=== PATIENT | male | born 1990 | race American Indian/Alaskan Native ===

== ENCOUNTER 2020-10-20 21:24 | Emergency (ER) | payer OTHER ==
--- NOTE | 2020-10-20 21:47 | Event Note ---
ED Screening Note Date of service: 10/20/20 Time: 21:45 ED Screening Note: c/o headache and left eye blurry vision x 3 days tylenol not helping denies hx of migraines, HTN, or head trauma no numbness/tingling/weakness in limbs per pt normal rhomberg, rapid hand movements, and heel to chance on exam This initial assessment/diagnostic orders/clinical plan/treatment(s) is/are subject to change based on patients health status, clinical progression and re- assessment by fellow clinical providers in the ED. Further treatment and workup at subsequent clinical providers discretion. Patient/guardian urged not to elope from the ED as their condition may be serious if not clinically assessed and ma naged. Initial orders include: labs CT head
[2020-10-20 22:05] LABS: Basophils # (Auto) 0.1 K/mm3 (0.0-0.1); Basophils % (Auto) 0.9 % (0.0-1.8); Eosinophils # (Auto) 0.1 K/mm3 (0.0-0.4); Eosinophils % (Auto) 1.7 % (0.0-4.3); Hematocrit 43.1 % (35.5-45.6); Hemoglobin 14.9 gm/dl (11.8-15.2); Lymphocytes # (Auto) 2.7 K/mm3 (1.2-5.4); Lymphocytes % (Auto) 43.1 % (13.4-35.0); Mean Corpuscular HGB Conc 34 % (32-34); Mean Corpuscular Volume 91 fl (84-94); Monocytes # (Auto) 0.5 K/mm3 (0.0-0.8); Monocytes % (Auto) 8.3 % (0.0-7.3); Platelet Count 188 K/mm3 (140-440); Red Blood Count 4.74 M/mm3 (3.65-5.03)
[2020-10-20 22:25] LABS: Alanine Aminotransferase 20 units/L (7-56); Albumin 4.7 g/dL (3.9-5); BUN/Creatinine Ratio 16; Blood Urea Nitrogen 18 mg/dL (9-20); Calcium 9.8 mg/dL (8.4-10.2); Hemolysis Index 9
--- NOTE | 2020-10-20 22:44 | Cat Scan Report ---
NONENHANCED CT SCAN OF THE HEAD: INDICATION / CLINICAL INFORMATION: 30 years Male; headache, left eye blurry vision x 3 days. TECHNIQUE: Routine CT head without contrast. All CT scans at this location are performed using CT dos e reduction for ALARA by means of automated exposure control. COMPARISON: None. FINDINGS: Abnormal CT scan BRAIN / INTRACRANIAL CONTENTS: Sellar turcica is expanded by a large sellar mass with suprasellar ext ension; remodeled floor of the sella has thickened bony wall; enlarged pituitary adenoma versus large aneurysm; please obtain MR scan of the pituitary gland with gadolinium; enlarged paranasal sinuses, expanded diploic space, frontal bossing and large mandible suggest acromegaly. No acute hemorrhage, mass effect, midline shift, hydrocephalus, or acute, large territorial infarct. No chronic infarct or focal atrophy. Normal brain volume and ventricular/sulcal size for age. No sign ificant white matter abnormality. CRANIOCERVICAL JUNCTION: No significant abnormality. ORBITS: No significant abnormality of visualized orbits. SINUSES / MASTOIDS: No significant abnormality of the visualized paranasal sinuses or mastoid air sudha ls. ADDITIONAL FINDINGS: None. IMPRESSION: Expanded sella turcica with the larger mass; large pituitary tumor versus aneurysm Enlarged paranasal sinuses, expanded diploic space and large jaw suggest acromegaly Please obtain MR scan of the pituitary gadolinium CRITICAL RESULT: Time of Discovery (ROOF TRUSS BUILDER/CDT): 9:30 PM Time of Communication (ROOF TRUSS BUILDER/CDT): 9:38 PM Licensed Practitioner Receiving Report: ER physician Read-Back Performed: Yes. Signer Name: Angel Dunlap MD Signed: 10/20/2020 10:39 PM Workstation Name: [id number]
--- NOTE | 2020-10-21 06:20 | Emergency Department Report ---
ED General Adult HPI - General Chief complaint: High BP Stated complaint: HIGH BLOOD PRESSURE Time Seen by Provider: 10/20/20 21:43 Source: patient Mode of arrival: Ambulatory Limitations: No Limitations - History of Present Illness Initial comments: Patient is a 30-year-old male who presents emergency department for evaluation of intermittent dull global headaches associated with double vision from left eye x 3 days. Denies N/V/D, denies trauma, denies extremity weakness or sensory change. Severity scale (0 -10): 0 - Related Data Allergies Allergy/AdvReac Type Severity Reaction Status Date / Time No Known Allergies Allergy Unverified 10/20/20 21:38 ED Review of Systems ROS: Stated complaint: HIGH BLOOD PRESSURE Other details as noted in HPI Comment: All other systems reviewed and negative ED Past Medical Hx - Past Medical History Previous Medical History?: No - Surgical History Past Surgical History?: No - Social History Smoking Status: Never Smoker Substance Use Type: Alcohol ED Physical Exam - General Limitations: No Limitations, Other ((+) acromegaly) General appearance: alert, in no apparent distress - Head Head exam: Present: atraumatic, normocephalic - Eye Eye exam: Present: normal appearance, EOMI Pupils: Present: normal accommodation - ENT ENT exam: Present: mucous membranes moist - Neck Neck exam: Present: normal inspection - Respiratory Respiratory exam: Present: normal lung sounds bilaterally. Absent: respiratory distress - Cardiovascular Cardiovascular Exam: Present: regular rate, normal rhythm - GI/Abdominal GI/Abdominal exam: Present: soft, normal bowel sounds - Rectal Rectal exam: Present: deferred - Extremities Exam Extremities exam: Present: normal inspection - Back Exam Back exam: Present: normal inspection - Neurological Exam Neurological exam: Present: alert, oriented X3, normal gait - Expanded Neurological Exam Expanded Neurological exam: Present: other (diplopia without obvious field cut) Patient oriented to: Present: person, place, time Speech: Present: fluid speech Cranial nerves: EOM's Intact: Normal, Tongue Deviation: Normal, Nystagmus: Normal, Facial Sensation: Normal Cerebellar function: Finger to Nose: Normal Sensory exam: Upper Extremity Light Touch: Normal, Lower Extremity Light Touch: Normal Motor strength exam: RUE: 5, LUE: 5, RLE: 5, LLE: 5 Best Eye Response ([place]): (4) open spontaneously Best Motor Response ([place]): (6) obeys commands Best Verbal Response ([place]): (5) oriented [place] Total: 15 - Psychiatric Psychiatric exam: Present: normal affect, normal mood - Skin Skin exam: Present: warm, dry, intact, normal color. Absent: rash ED Course Vital Signs 10/20/20 10/21/20 10/21/20 21:39 05:12 07:00 Temperature 98.5 F Pulse Rate 78 66 Respiratory 20 16 Rate Blood Pressure 146/103 134/83 Blood Pressure 143/103 [Right] O2 Sat by Pulse 98 99 Oximetry - Reevaluation(s) Reevaluation #1: 10/21/20 06:20 on initial evaluation, patient has been waiting in the emergency department for over 8 hours, patient now has blood pressure 141/90, denies headache, complains of mild blurry vision from left eye. CTA head pending. Radiologist requests additional noncontrast CT head after CTA, ordered. 10/21/20 13:23 Dr. Cardenas, neurosurgery on-call, contacted, case discussed, recommends transfer to another facility. Dr. Saxena, [place] [facility] contacted, case discussed, accepts patient for transfer. 10/21/20 13:25 ED Medical Decision Making - Lab Data Result diagrams: 10/20/20 21:46 10/20/20 21:46 Labs 10/20/20 10/20/20 21:46 21:46 WBC 6.2 RBC 4.74 Hgb 14.9 Hct 43.1 MCV 91 MCH 31 MCHC 34 RDW 12.0 L Plt Count 188 Lymph % (Auto) 43.1 H [place] % (Auto) 8.3 H Eos % (Auto) 1.7 Baso % (Auto) 0.9 Lymph # (Auto) 2.7 [place] # (Auto) 0.5 Eos # (Auto) 0.1 Baso # (Auto) 0.1 Seg Neutrophils % 46.0 Seg Neutrophils # 2.9 Sodium 137 Potassium 3.9 Chloride 100.3 Carbon Dioxide 27 Anion Gap 14 BUN 18 Creatinine 1.1 Estimated GFR > 60 BUN/Creatinine Ratio 16 Glucose 98 Calcium 9.8 Total Bilirubin 0.40 AST 16 ALT 20 Alkaline Phosphatase 134 H Total Protein 6.7 Albumin 4.7 Albumin/Globulin Ratio 2.4 Vital Signs 10/20/20 10/21/20 10/21/20 21:39 05:12 07:00 Temperature 98.5 F Pulse Rate 78 66 Respiratory 20 16 Rate Blood Pressure 146/103 134/83 Blood Pressure 143/103 [Right] O2 Sat by Pulse 98 99 Oximetry - Radiology Data Radiology results: report reviewed [facility] [address] [place] [address] Cat Scan Report Signed Patient: ARISTEO SENA MR#: [id number] : 1990 Acct:[id number] Age/Sex: 30 / M ADM Date: 10/20/20 Loc: ED Attending Dr: Ordering Physician: KARL BECERRA Date of Service: 10/20/20 Procedure(s): CT head/brain wo con Accession Number(s): [id number] cc: KARL BECERRA NONENHANCED CT SCAN OF THE HEAD: INDICATION / CLINICAL INFORMATION: 30 years Male; headache, left eye blurry vision x 3 days. TECHNIQUE: Routine CT head without contrast. All CT scans at this location are performed using CT dose reduction for ALARA by means of automated exposure control. COMPARISON: None. FINDINGS: Abnormal CT scan BRAIN / INTRACRANIAL CONTENTS: Sellar turcica is expanded by a large sellar mass with suprasellar extension; remodeled floor of the sella has thickened bony wall; enlarged pituitary adenoma versus large aneurysm; please obtain MR scan of the pituitary gland with gadolinium; enlarged paranasal sinuses, expanded diploic space, frontal bossing and large mandible suggest acromegaly. No acute hemorrhage, mass effect, midline shift, hydrocephalus, or acute, large territorial infarct. No chronic infarct or focal atrophy. Normal brain volume and ventricular/sulcal size for age. No significant white matter abnormality. CRANIOCERVICAL JUNCTION: No significant abnormality. ORBITS: No significant abnormality of visualized orbits. SINUSES / MASTOIDS: No significant abnormality of the visualized paranasal sinuses or mastoid air cells. ADDITIONAL FINDINGS: None. IMPRESSION: Expanded sella turcica with the larger mass; large pituitary tumor versus aneurysm Enlarged paranasal sinuses, expanded diploic space and large jaw suggest acromegaly Please obtain MR scan of the pituitary gadolinium CRITICAL RESULT: Time of Discovery (HOUSING RELOCATION/CDT): 9:30 PM Time of Communication (HOUSING RELOCATION/CDT): 9:38 PM Licensed Practitioner Receiving Report: ER physician Read-Back Performed: Yes. Signer Name: Angel Trinidad MD Signed: 10/20/2020 10:39 PM Workstation Name: [id number] Transcribed By: BS Dictated By: Angel Trinidad MD Electronically Authenticated By: Angel Trinidad MD Signed Date/Time: 10/20/20 2239 Patient: ARISTEO SENA MR#: [id number] : 1990 Acct:[id number] Age/Sex: 30 / M ADM Date: 10/20/20 Loc: ED Attending Dr: Ordering Physician: ISAAC MICHAUD MD Date of Service: 10/21/20 Procedure(s): CT angio head Accession Number(s): [id number] cc: ISAAC MICHAUD MD ADDENDUM Addendum: Superior displacement anterior communicating artery suggests superior displacement of optic chiasm; right cavernous sinus is markedly displaced laterally; Signer Name: Angel Dunlap MD Signed: 10/21/2020 1:05 PM Workstation Name: [id number] Addendum Transcribed By: BS Addendum Dictated By: Angel Trinidad MD Addendum Electronically Authenticated By: Angel Trinidad MD Addendum Signed Date/Time: 10/21/20 130 DD/ TD/TT: / CTA HEAD WITH CONTRAST HISTORY: Enlarged sella turcica; suspicious of large pituitary tumor COMPARISON: None. TECHNIQUE: Routine non-contrast CT Head, CTA of the head and post-contrast CT Head are performed. 3-D/MIP reformats postprocessed. All CT scans at this location are performed using CT dose reduction for ALARA by means of automated exposure control CONTRAST: 100 ml of Omnipaque 350 FINDINGS: CTA Head: CTA of the head would exclude the aneurysm as the etiology for the expanded sella turcica; since these images are obtained during arterial phase, pituitary tumor is still likely. I am arranging for delayed images through the brain. Intracranial vertebral arteries: No significant abnormality. Basilar artery: No significant abnormality. Posterior cerebral arteries: No significant abnormality. Intracranial internal carotid arteries: Right internal carotid artery is displaced laterally; minimal displacement of left internal carotid artery; communicating segments of both internal carotid arteries are displaced laterally Anterior cerebral arteries: Both A1 segments and displaced suprasellar extension of the pituitary tumor Middle cerebral arteries: No significant abnormality. Dural venous sinuses:Not optimally opacified. No significant abnormality. Additional findings: None. IMPRESSION: 1. CTA of the head excludes aneurysm; still I am suspicious of large pituitary tumor Signer Name: Ayden Dunlap MD Signed: 10/21/2020 11:14 AM Workstation Name: [id number] Transcribed By: BS Dictated By: Angel Trinidad MD Electronically Authenticated By: Angel Trinidad MD Signed Date/Time: 10/21/20 1114 DD/ 1104 TD/TT: -- [Addendum Report Added by MANUEL TRINIDAD at 2020-10-21 13:11:38] [facility] [address] [place] [address] Cat Scan Report Signed Patient: ARISTEO SENA MR#: [id number] : 1990 Acct:[id number] Age/Sex: 30 / M ADM Date: 10/20/20 Loc: ED Attending Dr: Ordering Physician: ISAAC MICHAUD MD Date of Service: 10/21/20 Procedure(s): CT angio head Accession Number(s): [id number] cc: ISAAC MICHAUD MD CTA HEAD WITH CONTRAST HISTORY: Enlarged sella turcica; suspicious of large pituitary tumor COMPARISON: None. TECHNIQUE: Routine non-contrast CT Head, CTA of the head and post-contrast CT Head are performed. 3-D/MIP reformats postprocessed. All CT scans at this location are performed using CT dose reduction for ALARA by means of automated exposure control CONTRAST: 100 ml of Omnipaque 350 FINDINGS: CTA Head: CTA of the head would exclude the aneurysm as the etiology for the expanded sella turcica; since these images are obtained during arterial phase, pituitary tumor is still likely. I am arranging for delayed images through the brain. Intracranial vertebral arteries: No significant abnormality. Basilar artery: No significant abnormality. Posterior cerebral arteries: No significant abnormality. Intracranial internal carotid arteries: Right internal carotid artery is displaced laterally; minimal d isplacement of left internal carotid artery; communicating segments of both internal carotid arteries are displaced laterally Anterior cerebral arteries: Both A1 segments and displaced suprasellar extension of the pituitary tumor Middle cerebral arteries: No significant abnormality. Dural venous sinuses:Not optimally opacified. No significant abnormality. Additional findings: None. IMPRESSION: 1. CTA of the head excludes aneurysm; still I am suspicious of large pituitary tumor Signer Name: Angel Dunlap MD Signed: 10/21/2020 11:14 AM Workstation Name: [id number] Transcribed By: MARILEE Dictated By: Angel Trinidad MD Electronically Authenticated By: Angel Trinidad MD Signed Date/Time: 10/21/20 1114 Ordering Physician: ISAAC MICHAUD MD Date of Service: 10/21/20 Procedure(s): CT head/brain wo con Accession Number(s): [id number] cc: ISAAC MICHAUD MD Contrast- enhanced CT SCAN OF HEAD: INDICATION / CLINICAL INFORMATION: abnormal CT. TECHNIQUE: Routine CT head without contrast. Sagittal and coronal reformatted images were obtained. All CT scans at this location are performed using CT dose reduction for ALARA by means of automated exposure control. COMPARISON: Nonenhanced CT scan of the head obtained yesterday FINDINGS: BRAIN: Compared to the nonenhanced CT scan from last night, no enhancement is seen. Since the CTA of the brain has ruled out aneurysm, this is most likely a large pituitary adenoma. IMPRESSION: Very little enhancement in the intrasellar lesion with suprasellar extension; since CTA chest excluded aneurysm, this is most likely a large pituitary adenoma; increased is CT attenuation nonenhanced series could be due to apoplexy of indeterminate age Signer Name: Angel Dunlap MD Signed: 10/21/2020 12:01 PM Workstation Name: [id number] Transcribed By: BS Dictated By: Angel Trinidad MD Electronically Authenticated By: Angel Trinidad MD Signed Date/Time: 10/21/20 1201 Critical care attestation.: If time is entered above; I have spent that time in minutes in the direct care of this critically ill patient, excluding procedure time. ED Disposition Clinical Impression: Pituitary adenoma Disposition: DC/TX-70 ANOTHER TYPE [facility]THCARE Is pt being admited?: Yes Condition: Stable
--- NOTE | 2020-10-21 11:19 | Cat Scan Report ---
CTA HEAD WITH CONTRAST HISTORY: Enlarged sella turcica; suspicious of large pituitary tumor COMPARISON: None. TECHNIQUE: Routine non-contrast CT Head, CTA of the head and post-contrast CT Head are performed. 3-D /MIP reformats postprocessed. All CT scans at this location are performed using CT dose reduction for ALARA by means of automated exposure control CONTRAST: 100 ml of Omnipaque 350 FINDINGS: CTA Head: CTA of the head would exclude the aneurysm as the etiology for the expanded sella turcica; since these images are obtained during arterial phase, pituitary tumor is still likely. I am arrangi ng for delayed images through the brain. Intracranial vertebral arteries: No significant abnormality. Basilar artery: No significant abnormality. Posterior cerebral arteries: No significant abnormality. Intracranial internal carotid arteries: Right internal carotid artery is displaced laterally; minimal displacement of left internal carotid artery; communicating segments of both internal carotid arteri es are displaced laterally Anterior cerebral arteries: Both A1 segments and displaced suprasellar extension of the pituitary krissy or Middle cerebral arteries: No significant abnormality. Dural venous sinuses:Not optimally opacified. No significant abnormality. Additional findings: None. IMPRESSION: 1. CTA of the head excludes aneurysm; still I am suspicious of large pituitary tumor Signer Name: Angel Dunlap MD Signed: 10/21/2020 11:14 AM Workstation Name: [id number]
--- NOTE | 2020-10-21 12:05 | Cat Scan Report ---
Contrast-enhanced CT SCAN OF HEAD: INDICATION / CLINICAL INFORMATION: abnormal CT. TECHNIQUE: Routine CT head without contrast. Sagittal and coronal reformatted images were obtained. All CT scans at this location are performed using CT dose reduction for ALARA by means of automated exposure cont rol. COMPARISON: Nonenhanced CT scan of the head obtained yesterday FINDINGS: BRAIN: Compared to the nonenhanced CT scan from last night, no enhancement is seen. Since the CTA of the bra in has ruled out aneurysm, this is most likely a large pituitary adenoma. IMPRESSION: Very little enhancement in the intrasellar lesion with suprasellar extension; since CTA chest exclude d aneurysm, this is most likely a large pituitary adenoma; increased is CT attenuation nonenhanced se tari could be due to apoplexy of indeterminate age Signer Name: Angel Dunlpa MD Signed: 10/21/2020 12:01 PM Workstation Name: [id number]
[2020-10-21 15:23] VITALS: BP 136/86
== END 2020-10-21 15:28 | disposition other institution (70) ==
LOC: ED 21:24
DX: D35.2 Benign neoplasm of pituitary gland (principal); I10 Essential (primary) hypertension
CPT/HCPCS: 36415; 70450; 70496; 80053; 85025; 99285; Q9967